=== PATIENT | male | born 1945 | race Caucasian/White ===

== ENCOUNTER 2018-02-12 12:47 | Emergency (ER) | payer MEDICARE ==
[2018-02-12 12:55] VITALS: BP 142/74; PULSE 66; RESP 18; TEMP 98
[2018-02-12] MEDS ORDERED: LIDOCAINE 1%-EPI 1:100,000 30 ML VIAL SQ STA (13:25)
--- NOTE | 2018-02-12 13:26 | ED ---
General Adult HPI - General Source: patient, RN notes reviewed Mode of arrival: ambulatory Limitations: no limitations <Don Elkins - Last Filed: 02/12/18 14:25> <Abelardo Olivia - Last Filed: 02/12/18 14:34> - General Chief complaint: Wound/Laceration Stated complaint: puncture wound left leg, on warfarin Time Seen by Provider: 02/12/18 13:12 - History of Present Illness Initial comments: 73-year-old male comes to the emergency department for a chief complaint of laceration 1 hour. Patient states a sharp part of a sun dial fell on his left leg and lacerated it. Patient is not sure when his last tetanus shot was. Patient is on Coumadin the bleeding has stopped. Patient denies any other symptoms of bleeding such as hematuria, melena, nosebleeds, abdominal pain. Patient denies falling or losing consciousness. Patient was able to stop the bleeding with bandages. Patient has no other complaints at this time including shortness of breath, chest pain, abdominal pain, nausea or vomiting, headache, or visual changes. (Don Elkins) - Related Data Home Medications Medication Instructions Recorded Confirmed Allopurinol [Zyloprim] 100 mg PO QAM 05/31/14 05/31/15 Gabapentin [Neurontin] 100 mg PO TID 05/31/14 05/31/15 Lovastatin [Mevacor] 20 mg PO HS 05/31/14 05/31/15 Warfarin [Coumadin] 5 mg PO MOTUWETHFRSA 05/31/14 05/31/15 amLODIPine BESYLATE/BENAZEPRIL 1 cap PO QAM 05/31/14 05/31/15 [Amlodipine-Benazepril 10-20 mg] glipiZIDE [Glucotrol XL] 2.5 mg PO QAM 05/31/14 05/31/15 sitaGLIPtin PHOS/metFORMIN HCL 1 tab PO BID 05/31/14 05/31/15 [Janumet 50-1,000 mg Tablet] Aspirin 81 mg PO DAILY 05/26/15 05/31/15 Chlorthalidone [Chlorthalidone] 25 mg PO QAM 05/26/15 05/31/15 Fish Oil/Dha/Epa [Fish Oil 1,200 1 cap PO DAILY 05/31/15 05/31/15 mg Fish Oil] Previous Rx's Medication Instructions Recorded HYDROcodone/APAP 7.5-325MG [[place] 1 each PO Q6HR PRN #60 tab 06/01/15 7.5] traMADol HCl [Ultram] 50 mg PO Q6H PRN #40 tab 06/01/15 Allergies Allergy/AdvReac Type Severity Reaction Status Date / Time codeine AdvReac Hallucinati Verified 02/12/18 12:54 ons Review of Systems ROS Other: All systems not noted in ROS Statement are negative. <Don Elkins - Last Filed: 02/12/18 14:25> ROS Other: All systems not noted in ROS Statement are negative. <Abelardo Olivia - Last Filed: 02/12/18 14:34> ROS Statement: Those systems with pertinent positive or pertinent negative responses have been documented in the HPI. Past Medical History Past Medical History: Diabetes Mellitus, Hyperlipidemia, Hypertension, Prostate Disorder Additional Past Medical History / Comment(s): GOUT. History of Any Multi-Drug Resistant Organisms: None Reported Past Surgical History: Joint Replacement, Orthopedic Surgery Additional Past Surgical History / Comment(s): TOTAL RIGHT HIP 2008. RIGHT ROTATOR CUFF. left knee surgery Past Anesthesia/Blood Transfusion Reactions: No Reported Reaction Past Psychological History: No Psychological Hx Reported Smoking Status: Never smoker Past Alcohol Use History: Rare Past Drug Use History: None Reported - Past Family History Father Family Medical History: AFIB, Cancer, Coronary Artery Disease (CAD) <Don Elkins P - Last Filed: 02/12/18 14:25> General Exam Limitations: no limitations General appearance: alert, in no apparent distress Head exam: Present: atraumatic, normocephalic, normal inspection Respiratory exam: Present: normal lung sounds bilaterally. Absent: respiratory distress, wheezes, rales, rhonchi, stridor Cardiovascular Exam: Present: regular rate, normal rhythm, normal heart sounds. Absent: systolic murmur, diastolic murmur, rubs, gallop, clicks Extremities exam: Present: full ROM (Full range of motion of the left lower leg including the left digits ankle knee and hip.), tenderness (Tenderness present over the laceration site. No tenderness elsewhere or over the tib-fib.), normal capillary refill (Refill less than 2 seconds and pedal pulse 2+ in the left lower extremity.), other (There is a 3 cm laceration to the lateral lower leg that has stopped bleeding at this time.). Absent: pedal edema, joint swelling, calf tenderness (No tenderness to the posterior calf. No increased swelling, redness, or warmth noted. Negative Homans sign.) <Don Elkins - Last Filed: 02/12/18 14:25> Course <Don Elkins - Last Filed: 02/12/18 14:25> <Abelardo Olivia - Last Filed: 02/12/18 14:34> Vital Signs 02/12/18 12:50 Temperature 98.0 F Pulse Rate 66 Respiratory 18 Rate Blood Pressure 142/74 O2 Sat by Pulse 98 Oximetry - Reevaluation(s) Reevaluation #1: 02/12/18 14:33 PA supervision: I did personally do a [id number] evaluation patient and did discuss the findings with him. Patient does have peripheral neuropathy normally he has no new numbness tingling or loss of function. The wound was repaired by the physician assistant business manager. The initial one was obtained when he was stuck in the leg by the arrow portion of a sundial that had fallen over in his yard. I do agree with the assessment and plan. I did review the charting. ( Abelardo Olivia) Procedures <Don Elkins - Last Filed: 02/12/18 14:25> <Abelardo Olivia - Last Filed: 02/12/18 14:34> - Procedures Initial comment: Body area: left lateral lower leg Laceration length: 3 cm Foreign bodies: no foreign bodies Tendon involvement: none Nerve involvement: none Vascular damage: no Anesthesia: local infiltration Local anesthetic: 7 mL 1% lidocaine with epi Preparation: Patient was prepped and draped in the usual sterile fashion. Irrigation solution: sterile water Irrigation method:sterile water jet lavage, iodine Skin closure:5-0 Ethilon using sterile technique Number of sutures: 10 Technique: interupted Dressing: antibiotic ointment/ gauze Patient tolerance: Patient tolerated the procedure well with no immediate complications. (Don Elkins) Medical Decision Making <Don Elkins - Last Filed: 02/12/18 14:25> <Abelardo Olivia - Last Filed: 02/12/18 14:34> - Medical Decision Making 73-year-old male presents to the emergency department for a chief complaint of laceration for one hour. Patient states the sharp part of his fell and hit his leg lacerating it. Patient was given a tetanus shot in the emergency department. Patient is on Coumadin. Bleeding has stopped. Patient has no other symptoms of bleeding at this time. On exam patient has full range of motion of the left lower extremity. Tenderness only to the laceration site in the left lower extremity. No calf tenderness. Negative Homans sign. Neurovascular intact. X-ray of the left tib-fib shows o fracture or dislocation , no radiographic foreign body. Patient's wound was irrigated with a liter of sterile water. It was cleaned extensively with iodine. No foreign bodies. All deep structures intact. 10 sutures were used to close the wound. Patient was educated on monitoring for signs of infection. There are no signs of infection right now such as cellulitic changes or spreading redness. Patient will return if he notices any of these. Otherwise he will return in 7-10 days to have sutures removed. He was educated to keep an eye on it since lower extremities don't always heal as quickly and to follow up with primary care in 1 -[address] Olivia also saw the patient. (Don Elkins) Disposition Is patient prescribed a controlled substance at d/c from ED?: No Time of Disposition: 14:30 <Don Elkins - Last Filed: 02/12/18 14:25> <Abelardo Olivia - Last Filed: 02/12/18 14:34> Clinical Impression: Laceration Disposition: HOME SELF-CARE Condition: Good Instructions: Care For Your Stitches (ED), Laceration (ED) Additional Instructions: Please monitor for any signs of infection such as spreading redness, streaking redness, drainage from the wound, or fever. Return if these occur or any other worsening symptoms. Return in 7-10 days to have sutures removed. Follow up with primary care in 1-2 days. Referrals: Enoch Resendiz MD [Primary Care Provider] - 1-2 days
--- NOTE | 2018-02-12 13:56 | XR ---
Left leg 2 views of the left leg submitted on 4 images HISTORY: Laceration There is soft tissue swelling. No radiopaque foreign body. Postop changes noted to the left knee. Bertram ency is present in the soft tissues. There are vascular calcifications present. Alignment and bone mi neralization within normal limits. IMPRESSION: No fracture or dislocation, no radiographic foreign body. Soft tissue swelling, correlate for cellulitis, edema.
[2018-02-12] MEDS ORDERED: DIPH,PERTUS(ACELL)TETVAC-LF 0.5 ML VIAL IM ONE (14:27)
== END 2018-02-12 14:55 | disposition home or self-care (01) ==
LOC: EC 12:47
DX: S81.812A Laceration without foreign body, left lower leg, initial encounter (principal); E11.9 Type 2 diabetes mellitus without complications; E78.5 Hyperlipidemia, unspecified; I10 Essential (primary) hypertension; G62.9 Polyneuropathy, unspecified; M10.9 Gout, unspecified; Z23 Encounter for immunization; Z96.641 Presence of right artificial hip joint; Z79.01 Long term (current) use of anticoagulants; Z79.82 Long term (current) use of aspirin; Z79.899 Other long term (current) drug therapy; Z88.5 Allergy status to narcotic agent; W21.89XA Striking against or struck by other sports equipment, initial encounter; Y92.89 Other specified places as the place of occurrence of the external cause; Y93.89 Activity, other specified
CPT/HCPCS: 12002; 90471; 90715; 99283

== ENCOUNTER → 2020-10-20 | Outpatient (CLI) | payer MEDICARE ==
--- NOTE | 2020-10-20 14:26 | ECHOF ---
Referral Reason:I48.0 a fib MEASUREMENTS -------- HEIGHT: 180.3 cm WEIGHT: 119.3 kg BP: RVIDd: 3.4 cm (< 3.3) IVSd: 1.2 cm (0.6 - 1.1) LVIDd: 5.0 cm (3.9 - 5.3) LVPWd: 1.3 cm (0.6 - 1.1) IVSs: 1.8 cm LVIDs: 3.6 cm LVPWs: 1.3 cm LAESV Index (A-L): 38.81 ml/m Ao Diam: 2.7 cm (2.0 - 3.7) AV Cusp: 2.0 cm (1.5 - 2.6) LA Diam: 4.8 cm (2.7 - 3.8) MV EXCURSION: 16.790 mm (> 18.000) MV EF SLOPE: 52 mm/s (70 - 150) EPSS: 1.8 cm RAP: 5.00 mmHg RVSP: 44.18 mmHg FINDINGS -------- Atrial fibrillation. This was a technically difficult study with suboptimal views. The left ventricular size is normal. There is mild concentric left ventricular hypertrophy. Overa ll left ventricular systolic function is moderately impaired with, an EF between 35 - 40 %. Left ve ntricular fillimg pressure cannot be estimated due to Atrial fibrillation. The right ventricle is mildly enlarged. LA is moderately dilated 34-39 ml/m2 The right atrium is mildly enlarged. 5.0mg of Lumason was utilized for enhancement of images Aortic valve is trileaflet and is mildly thickened. The mitral valve is normal. The mitral valve leaflets are mildly thickened. Mild mitral regurgita tion is present. The tricuspid valve appears structurally normal. Mild tricuspid regurgitation present. There is m ild pulmonary hypertension. The right ventricular systolic pressure, as measured by Doppler, is 44. 18mmHg. There is no pulmonic regurgitation present. The aortic root size is normal. IVC Not well visulized. There is no pericardial effusion. CONCLUSIONS -------- 1. Atrial fibrillation. 2. The left ventricular size is normal. 3. There is mild concentric left ventricular hypertrophy. 4. Overall left ventricular systolic function is moderately impaired with, an EF between 35 - 40 %. 5. Left ventricular fillimg pressure cannot be estimated due to Atrial fibrillation. 6. The right ventricle is mildly enlarged. 7. LA is moderately dilated 34-39 ml/m2 8. The right atrium is mildly enlarged. 9. Aortic valve is trileaflet and is mildly thickened. 10. The mitral valve leaflets are mildly thickened. 11. Mild mitral regurgitation is present. 12. Mild tricuspid regurgitation present. 13. There is mild pulmonary hypertension. 14. The right ventricular systolic pressure, as measured by Doppler, is 44.18mmHg. 15. There is no pericardial effusion. VENEER LAYER: Darlene Liriano RDCS
--- NOTE | 2020-10-20 16:20 | US ---
EXAMINATION TYPE: US kidneys/renal and bladder DATE OF EXAM: 10/20/2020 COMPARISON: NONE CLINICAL HISTORY: N18.31 CHronic kidney disease. EXAM MEASUREMENTS: Right Kidney: 11.1 x 5.4 x 4.9 cm Left Kidney: 10.5 x 6.2 x 4.9 cm Large body habitus, technically difficult somewhat limited study. Right Kidney: No hydronephrosis or masses seen Left Kidney: No hydronephrosis or masses seen Bladder: wnl Bilateral Jets seen: Yes There is no evidence for hydronephrosis at this point in time. No nephrolithiasis is seen. Cortical medullary differentiation is maintained No masses are identified. The urinary bladder is anechoic. Bilateral ureteral jets are seen. Coarse echotexture within the liver may be indicative of an underlying hepatic steatosis, suspect und erlying hepatomegaly. IMPRESSION: Exam is somewhat limited. Renal sizes as described.
--- NOTE | 2020-10-20 16:22 | US ---
EXAMINATION TYPE: US carotid duplex BILAT DATE OF EXAM: 10/20/2020 COMPARISON: NONE CLINICAL HISTORY: I65.23 Carotid stenosis bilateral. EXAM MEASUREMENTS: RIGHT: Peak Systolic Velocity (PSV) cm/sec ----- Right CCA: 57.8 ----- Right ICA: 91.6 ----- Right ECA: 224.9 ICA/CCA ratio: 1.6 RIGHT: End Diastole cm/sec ----- Right CCA: 15.1 ----- Right ICA: 21.2 ----- Right ECA: 22.9 LEFT: Peak Systolic Velocity (PSV) cm/sec ----- Left CCA: 96.5 ----- Left ICA: 82.8 ----- Left ECA: 88.3 ICA/CCA ratio: 0.9 LEFT: End Diastole cm/sec ----- Left CCA: 21.5 ----- Left ICA: 27.8 ----- Left ECA: 13.1 VERTEBRALS (direction of flow): Right Vertebral: Antegrade Left Vertebral: Antegrade Rhythm: Normal Grayscale, color Doppler, spectral Doppler imaging performed of the carotid arteries. Waveform analys is does not show significant stenosis of the internal carotid arteries Moderate atherosclerotic babcock es without significant velocity elevations seen in bilateral ICA's. Right ECA shows elevation. IMPRESSION: No hemodynamic significant stenosis of the proximal internal carotid arteries by Doppler criteria, an indirect measurement of carotid stenosis Criteria for Assigning % of Stenosis / Diameter reduction (Estimation based on the indirect measurements of the internal carotid artery velocities (ICA PSV). 1. Normal (no stenosis)=ICA PSV < 125 cm/s: ratio < 2.0: ICA EDV<40 cm/s. 2. Less than 50% stenosis=ICA PSV < 125 cm/s: ratio < 2.0: ICA EDV<40 cm/s. 3. 50 to 69% stenosis=ICA PSV of 125 to 230 cm/s: ration 2.0 ? 4.0: ICA EDV 40-100 cm/s. 4. Greater than 70% stenosis to near occlusion= ICA PSV > 230 cm/s: ratio > 4.0: ICA EDV > 100 cm/s. 5. Near occlusion= ICA PSV velocities may be low or undetectable: variable ratio and ICA EDV. 6. Total occlusion=unable to detect flow.
== END | disposition home or self-care (01) ==
LOC: RADECHMAIN 12:02
PROVIDERS: ATTEND Internal Medicine
DX: I08.1 Rheumatic disorders of both mitral and tricuspid valves (principal); I27.20 Pulmonary hypertension, unspecified; I48.91 Unspecified atrial fibrillation; I50.1 Left ventricular failure, unspecified; N18.31 Chronic kidney disease, stage 3a; I65.23 Occlusion and stenosis of bilateral carotid arteries
CPT/HCPCS: 76770; 93880; C8929; Q9950; 93306

== ENCOUNTER 2021-02-21 05:53 | Day surgery (SDC) | payer MEDICARE ==
[2021-02-20 08:58] VITALS: BMI 36.2
[~2021-02-21 05:53] MED LIST: ALPRAZolam 0.25 MG TAB PO PRN; ALPRAZolam 0.5 MG TAB PO PRN; ASPIRIN 325 MG TAB PO STA; ATORVASTATIN 80 MG TAB PO STA; NITROGLYCERIN SL TABS 0.4 MG TAB SUBLINGUAL PRN; SODIUM CHLORIDE 0.9% 1,000 ML in EMPTY BAG 1 BAG IV ONE
[2021-02-21 06:21] LABS: Glucose,Whole Blood 259 mg/dL (75-99)
[2021-02-21 06:22] VITALS: TEMP 98.8
[2021-02-21] MEDS ORDERED: INSULIN ASPART (NovoLOG) 100 UNIT/ML VIAL SQ ONE (06:27)
[2021-02-21 06:48] LABS: Basophils % (A) 0 %; Eosinophils # (A) 0.2 k/uL (0-0.7); Eosinophils % (A) 2 %; HGB 9.2 gm/dL (13.0-17.5); Hypochromasia Marked; Lymphocytes # (A) 1.5 k/uL (1.0-4.8); Lymphocytes % (A) 16 %; MCHC 32.9 g/dL (31.0-37.0); MCV 88.1 fL (80.0-100.0); Mean Platelet Volume 8.5; Monocytes # (A) 0.6 k/uL (0-1.0); Monocytes % (A) 6 %; Neutrophils # (A) 6.9 k/uL (1.3-7.7); Neutrophils % (A) 74 %; Platelet Count 324 k/uL (150-450); Poikilocytosis Moderate; RBC 3.18 m/uL (4.30-5.90); RDW 14.8 % (11.5-15.5); WBC 9.4 k/uL (3.8-10.6)
[2021-02-21 06:57] LABS: Calcium 9.2 mg/dL (8.4-10.2); Potassium 3.9 mmol/L (3.5-5.1)
[2021-02-21] MEDS ORDERED: HEPARIN SODIUM,PORCINE 2,500 UNIT in SODIUM CHLORIDE 0.9% 250 ML IRRIGATION PRN (07:00)
[2021-02-21] MEDS ORDERED: HEPARIN SODIUM,PORCINE 10,000 UNIT in SODIUM CHLORIDE 0.9% 1,000 ML IRRIGATION PRN (07:00)
[2021-02-21] MEDS ORDERED: VERAPAMIL 2.5 MG/ML 2 ML AMP ONE (07:23)
[2021-02-21] MEDS ORDERED: fentaNYL (PF) 50 MCG/ML 2 ML AMP ONE (07:23)
[2021-02-21] MEDS ORDERED: LIDOCAINE 1% INJ 10MG/ML (20 ML MDV) ONE (07:23)
[2021-02-21] MEDS ORDERED: HEPARIN SODIUM 1,000 UN/ML (10ML VL) ONE (07:23)
[2021-02-21] MEDS ORDERED: fentaNYL (PF) 50 MCG/ML 2 ML AMP IV ONE (07:42)
[2021-02-21] MEDS ORDERED: LIDOCAINE 1% INJ 10MG/ML (20 ML MDV) SQ ONE (07:43)
[2021-02-21] MEDS: VERAPAMIL SYRINGE (5 MG/10 ML) INTRAARTER ONE ×2 (07:44→07:58)
[2021-02-21] MEDS ORDERED: METOPROLOL TARTRATE 5 MG/5 ML VIAL IVP ONE ×2 (07:45→07:47)
[2021-02-21] MEDS ORDERED: HEPARIN SODIUM 1,000 UN/ML (10ML VL) IV ONE (07:58)
[2021-02-21] MEDS ORDERED: IOPAMIDOL-370 125ML BTL INJ ONE (08:03)
[2021-02-21] MEDS ORDERED: SODIUM CHLORIDE 0.9% 1,000 ML IV SCH (08:15)
[2021-02-21] MEDS ORDERED: RX INFO: IV CONTRAST WAS GIVEN 1 EACH MISC MISCELLANE PRN (08:15)
[2021-02-21 08:22] VITALS: RESP 16
[2021-02-21] MEDS ORDERED: NON FORMULARY DRUG (Semaglutide [Rybelsus] 7 MG Tablet) PO SCH (09:00)
[2021-02-21] MEDS ORDERED: TURMERIC CURCUMIN PO SCH (09:00)
[2021-02-21] MEDS ORDERED: NON FORMULARY DRUG (Cholecalciferol (Vitamin D3) [Vitamin D3 (5000 Iu)] 125 MCG Capsule) PO SCH (09:00)
[2021-02-21] MEDS ORDERED: GABAPENTIN 100 MG CAP PO SCH (09:00)
[2021-02-21] MEDS ORDERED: GLIPIZIDE 2.5 MG PO SCH (09:00)
[2021-02-21] MEDS ORDERED: lisinopriL 5 MG TAB PO SCH (09:00)
[2021-02-21] MEDS ORDERED: NON FORMULARY DRUG (Vitamin B Complex [Vitamin B Complex] 1 EACH Capsule) PO SCH (09:00)
[2021-02-21] MEDS ORDERED: ASCORBIC ACID 500 MG TAB PO SCH (09:00)
[2021-02-21] MEDS ORDERED: NON FORMULARY DRUG (Zinc [Zinc] 50 MG Tablet) PO SCH (09:00)
[2021-02-21] MEDS ORDERED: METOPROLOL TARTRATE 25 MG TAB PO SCH (09:00)
[2021-02-21] MEDS ORDERED: SITAGLIPTIN 25 MG PO SCH (09:00)
[2021-02-21] MEDS ORDERED: allopurinoL 100 MG TAB PO SCH (09:00)
--- NOTE | 2021-02-21 09:24 | CC ---
CARDIAC CATHETERIZATION REPORT Mr. Monsalve is a 76-year-old male with known history of hypertension, hyperlipidemia, diabetes mellitus, history of atrial fibrillation, and a history of cardiomyopathy who has been complaining of progressive symptoms of dyspnea. He underwent myocardial perfusion imaging that revealed a partially reversible inferoapical wall defect that could represent a combination of ischemic and nonischemic cardiomyopathy. In view of that, recommendation was made regarding cardiac catheterization. The procedure as well as the risks and complications were discussed with the patient who is in full understanding and agreement. PROCEDURE: Patient was brought to the clinical laboratory medical director in a fasting semi-sedated state after receiving fentanyl and Benadryl and achieving moderate conscious sedated state. Using Xylocaine anesthesia and Seldinger technique, a 6-Congolese sheath was introduced in the right radial artery. Selective right and left coronary angiography performed with 6-Congolese, 5 bend right Jonh catheter and 5-Congolese 3.5 bend left Jonh catheter. Multiple views of the coronary arteries including hemiaxial views obtained. Following that a 5- Cong[place]ese tight pigtail catheter was introduced into the left ventricle and left ventricular end-diastolic pressure was calculated. Following that, catheter and sheath were removed. Hemostasis was obtained with deployment of TR band. There was no immediate complication. Patient is returned to his room in stable condition. Of note, the patient received 5000 units of intravenous heparin as well as intra-arterial verapamil. FINDINGS: LEFT MAIN: This is a very short size vessel, almost nonexisting, bifurcating immediately to the left circumflex and left anterior descending artery. LEFT ANTERIOR DESCENDING ARTERY: This is a large-sized vessel reaching to the apex with a wraparound to the apex segment giving rise to 3 diagonal branches. The left anterior descending artery is mildly calcified proximally. The first diagonal branch has a 30 to 40% plaque at the ostium. The rest of the vessel has no high-grade stenosis. LEFT CIRCUMFLEX: This is a codominant vessel, bifurcating distally to a small PDA and PLV, giving rise to 3 obtuse marginal branches, the first one is the largest in caliber. The left circumflex as well as branches have no evidence of obstructive disease. RIGHT CORONARY ARTERY: This is a moderately-sized codominant vessel, giving rise to a right PDA. The right coronary artery and its branches have no evidence of obstructive coronary artery disease. LEFT VENTRICULOGRAM: Left ventriculogram was not performed. HEMODYNAMICS: There was no gradient across the aortic valve. The left ventricular end-diastolic pressure 12-16 mmHg. CONCLUSION: 1. Mild calcification in the left anterior descending. 2. Normal ventricular end-diastolic pressure. 3. Codominant system. RECOMMENDATION: In view of finding anatomy, I recommend to continue medical therapy with aggressive coronary risk modifications that has been initiated. Those findings and recommendation were discussed with the patient and his family and they are in full understanding and agreement. Duration of sedation 21 minute. MMODL / IJN: [id number] /
--- NOTE | 2021-02-21 09:24 | LTR ---
02/21/2021 RE: Abelardo Monsalve Dear Dr. Larsen: I had the pleasure of performing coronary cardiac catheterization on Mr. Monsalve at [facility] on February 21 and a full copy of procedure note will be forwarded to you. In brief, he was found to have no evidence of high-grade stenosis and based on those findings I recommend to maximize his medical therapy in view of his cardiomyopathy and depending on his progress, further recommendation will be made. Thank you again for allowing me to participate in his care. Please feel free to call for any questions. Sincerely yours, MD WILLY ShankarL / EDENN: [id number] /
[2021-02-21 13:12] VITALS: BP 123/72; PULSE 76
[2021-02-21] MEDS ORDERED: ATORVASTATIN 20 MG TAB PO SCH (21:00)
== END 2021-02-21 11:46 | disposition home or self-care (01) ==
LOC: CATHCVL 05:53
PROVIDERS: ATTEND Internal Medicine Interventional Cardiology
DX: I25.10 Atherosclerotic heart disease of native coronary artery without angina pectoris (principal); I25.84 Coronary atherosclerosis due to calcified coronary lesion; I42.8 Other cardiomyopathies; I10 Essential (primary) hypertension; E78.2 Mixed hyperlipidemia; E11.9 Type 2 diabetes mellitus without complications; Z20.822 Contact with and (suspected) exposure to COVID-19; Z96.659 Presence of unspecified artificial knee joint; Z96.649 Presence of unspecified artificial hip joint; Z98.890 Other specified postprocedural states; Z98.49 Cataract extraction status, unspecified eye; Z96.1 Presence of intraocular lens; Z87.891 Personal history of nicotine dependence; I48.21 Permanent atrial fibrillation; Z79.01 Long term (current) use of anticoagulants; Z79.84 Long term (current) use of oral hypoglycemic drugs; Z79.899 Other long term (current) drug therapy; Z88.5 Allergy status to narcotic agent
CPT/HCPCS: 93458; 80048; 85025; 87635; C1894; C1769 ×2; J2001; J3010; J1644; Q9967

== ENCOUNTER → 2021-04-11 | Outpatient (CLI) | payer MEDICARE ==
--- NOTE | 2021-04-11 11:08 | XR ---
EXAM TYPE: LUMBAR SPINE X RAY SERIES COMPARISON: NONE HISTORY: Pain TECHNIQUE: 3 views are submitted. FINDINGS: Alignment is anatomic. The pedicles are intact. The transverse processes are intact. There is mult ilevel hypertrophic and degenerative changes. There is multilevel facet arthropathy. Bridging anterio r osteophytes are seen at multiple levels. Suspect foraminal encroachment at multiple levels and part icularly at L4-5 and L5-S1. Bilateral SI joint arthropathy. IMPRESSION: 1. Multilevel moderate to severe degenerative disc disease most marked at L4-L5 with hypertrophic art hropathy. Suspect bilateral foraminal encroachment recommend follow-up MRI.
== END | disposition home or self-care (01) ==
LOC: RADXRMAIN 09:45
PROVIDERS: ATTEND Internal Medicine
DX: M51.36 Other intervertebral disc degeneration, lumbar region (principal)
CPT/HCPCS: 72100

== ENCOUNTER → 2021-04-30 | Outpatient (CLI) | payer MEDICARE ==
[2021-04-30 11:48] LABS: Anisocytosis Slight; HCT 33.5 % (39.0-53.0); HGB 10.3 gm/dL (13.0-17.5); Hypochromasia Marked; MCH 26.9 pg (25.0-35.0); MCHC 30.6 g/dL (31.0-37.0); MCV 87.9 fL (80.0-100.0); Mean Platelet Volume 9.1; Platelet Count 252 k/uL (150-450); RBC 3.82 m/uL (4.30-5.90); RDW 16.5 % (11.5-15.5); WBC 7.8 k/uL (3.8-10.6)
[2021-04-30 12:07] LABS: Potassium 3.5 mmol/L (3.5-5.1)
== END | disposition home or self-care (01) ==
LOC: LABPAT 11:11
PROVIDERS: ATTEND Internal Medicine Clinical Cardiac Electrophysiology
DX: Z01.812 Encounter for preprocedural laboratory examination (principal); I48.11 Longstanding persistent atrial fibrillation
CPT/HCPCS: 36415; 80051; 82565; 84520; 85027

== ENCOUNTER → 2021-05-11 | Outpatient (CLI) | payer MEDICARE ==
--- NOTE | 2021-05-13 15:53 | MR ---
EXAMINATION TYPE: MR lumbar spine wo con DATE OF EXAM: 05/11/2021 COMPARISON: Plain film 04/11/2021 HISTORY: TECHNIQUE: Multiplanar, multisequence images of the lumbar spine were acquired. L1-L2: Posterior broad-based disc bulge causes minimal anterior mass effect on the thecal sac. There is some facet arthropathy change. No significant foraminal encroachment. L2-L3: Posterior broad-based disc bulge causes minimal anterior mass effect on the thecal sac. No sig nificant spinal stenosis or foraminal encroachment. L3-L4: Facet arthropathy is present with hypertrophy ligamentum flavum causing some posterior lateral mass effect on the thecal sac. Posterior broad-based disc bulge causes anterior mass effect on the t hecal sac but no significant spinal stenosis or foraminal encroachment. L4-L5: Posterior extension endplate disc complex results in moderate spinal stenosis, circumferential extension endplate disc complex encroaches minimally on the inferior foramina. Facet arthropathy wit h hypertrophy ligamentum flavum causes posterior lateral mass effect on the thecal sac. L5-S1: Posterior extension endplate disc complex causes effacement of anterior thecal sac. No signifi cant spinal stenosis. Circumferential extension endplate disc complex results in foraminal encroachme nt. Facet arthropathy changes are present. Lumbar segments are intact. No paraspinal masses are identified. Conus medullaris has a normal appe arance. There is loss of disc height and signal at intervertebral levels, multilevel spondylosis with endplate discogenic marrow signal change. Superior endplate of L2 shows a small is no. At T11-12 the re is posterior extension endplate disc complex causing mass effect on the conus medullaris. There is some associated facet arthropathy change resulting in spinal stenosis. IMPRESSION: There is mass effect on the conus medullaris due to spinal stenosis, hypertrophic changes of the face ts and degenerative disc change. Additional degenerative disc disease, facet arthropathy and foramina l encroachment as described.
== END | disposition home or self-care (01) ==
LOC: RADMRIMAIN 06:35
PROVIDERS: ATTEND Internal Medicine
DX: M48.061 Spinal stenosis, lumbar region without neurogenic claudication (principal); M51.06 Intervertebral disc disorders with myelopathy, lumbar region; M51.36 Other intervertebral disc degeneration, lumbar region; M46.96 Unspecified inflammatory spondylopathy, lumbar region
CPT/HCPCS: 72148

== ENCOUNTER 2021-07-30 07:35 | Day surgery (SDC) | payer MEDICARE ==
[2021-07-27 09:49] VITALS: BMI 33.9
[~2021-07-30 07:35] MED LIST changes: -ALPRAZolam 0.25 MG TAB PO PRN; -ALPRAZolam 0.5 MG TAB PO PRN; -ASPIRIN 325 MG TAB PO STA; -ATORVASTATIN 80 MG TAB PO STA; +LACTATED RINGERS 1,000 ML IV SCH; +MIDAZOLAM 2 MG/2 ML VIAL IV PRN; -NITROGLYCERIN SL TABS 0.4 MG TAB SUBLINGUAL PRN; +SODIUM CHLORIDE 0.9% 1,000 ML IV SCH; -SODIUM CHLORIDE 0.9% 1,000 ML in EMPTY BAG 1 BAG IV ONE; +fentaNYL (PF) 50 MCG/ML 2 ML AMP IV PRN
[2021-07-30] MEDS ORDERED: SODIUM CHLORIDE 0.9% 1,000 ML IV ONE (07:51)
[2021-07-30] MEDS ORDERED: INSULIN ASPART (NovoLOG) 100 UNIT/ML VIAL SQ ONE ×2 (08:09→08:23)
[2021-07-30 08:10] LABS: Glucose,Whole Blood 211 mg/dL (75-99)
[2021-07-30] MEDS ORDERED: fentaNYL (PF) 50 MCG/ML 2 ML AMP ONE (09:52)
[2021-07-30] MEDS ORDERED: DEXAMETHASONE SOD PHOSPHATE 10 MG/ML 1 ML VIAL ONE (09:52)
[2021-07-30] MEDS ORDERED: ETOMIDATE 2 MG/ML 10 ML VIAL ONE (09:52)
[2021-07-30] MEDS ORDERED: PHENYLEPHRINE-0.9% NACL SYG 1,000 MCG/10 ML SYRINGE ONE (09:52)
[2021-07-30] MEDS ORDERED: ONDANSETRON 4 MG/2 ML VIAL ONE (09:52)
[2021-07-30] MEDS ORDERED: HEPARIN SODIUM,PORCINE 10,000 UNIT/ML 1 ML VIAL ONE (09:52)
[2021-07-30] MEDS ORDERED: LIDOCAINE 1% INJ 10MG/ML (20 ML MDV) ONE ×2 (09:52→10:11)
[2021-07-30] MEDS ORDERED: SUCCINYLCHOLINE CHLORIDE VIAL 200 MG/10 ML VIAL IV ONE (09:52)
[2021-07-30] MEDS ORDERED: MIDAZOLAM 2 MG/2 ML VIAL ONE (09:52)
--- NOTE | 2021-07-30 09:55 | P.HPCAR ---
History of Present Illness This is Dr. Kumar dictating an H/P on this patient The patient was interviewed and examined IMPRESSION / ASSESSMENT: Persistent long-standing atrial fibrillation Reduce LV systolic function of 35%, nonischemic cardio myopathy Main complaint is tiredness shortness of breath on exertion with occasional dizziness Calcific atherosclerosis but no high-grade stenosis no ischemia on stress testing Chronic kidney disease PLAN: A. fib ablation with pulmonary vein isolation and linear ablation of the septum Continue oral amiodarone Continue Xarelto Long-acting metformin succinate Follow Dr. Larsen and Dr. Castañeda HPI Patient complains of tiredness and fatigue but he denies any orthopnea PND no recent CHF exacerbation No syncope No fever chills cough ROS: No fever chills or rigors, no cough, phlegm or expectoration, no nausea, vomiting or diarrhea, no hematuria, dysuria, no musculoskeletal complaints, no strokes or seizures, no skin lesions. EXAMINATION: Afebrile 97.9F, normal respirations, blood pressure 166/75 mmHg pulse rate in the 80s irregular Breath sounds are clear no rhonchi no crackles No JVD no hepatojugular reflux No murmurs over the precordium No lower extremity edema Normal groin bilaterally REVIEW OF LABS, ECG & MEDICAL DATA normal potassium, glucose 211 Sodium 143, BUN 17, creatinine 1.3 Hemoglobin A1c 7.3% Normal liver function TSH normal at 2.2 Triglycerides 181, total cholesterol 100 and LDL 31, HDL 33 Physical Exam Vitals: Vital Signs Temp Pulse Resp BP Pulse Ox 07/30/21 08:24 97.9 F 87 16 166/75 95 Intake and Output 07/29/21 07/30/21 07/30/21 22:59 06:59 14:59 Intake Total 100 Balance 100 Intake: IV 100 Other: Weight 109 kg Past Medical History Past Medical History: Atrial Fibrillation, Diabetes Mellitus, Hyperlipidemia, Hypertension, Osteoarthritis (OA), Prostate Disorder Additional Past Medical History / Comment(s): See Dr Kumar's H&P,GOUT, enlarged prostate,spinal stenosis History of Any Multi-Drug Resistant Organisms: None Reported Past Surgical History: Joint Replacement, Orthopedic Surgery Additional Past Surgical History / Comment(s): TOTAL RIGHT HIP 2007. RIGHT ROTATOR CUFF. left knee surgery, left knee replaced Past Anesthesia/Blood Transfusion Reactions: No Reported Reaction Smoking Status: Never smoker - Past Family History Father Family Medical History: AFIB, Cancer, Coronary Artery Disease (CAD) Physical Examination Vital Signs Temp Pulse Resp BP Pulse Ox 07/30/21 08:24 97.9 F 87 16 166/75 95 Intake and Output 07/29/21 07/30/21 07/30/21 22:59 06:59 14:59 Intake Total 100 Balance 100 Intake: IV 100 Other: Weight 109 kg Results 07/30/21 07:50 Comprehensive Metabolic Panel 07/30/21 Range/Units 07:50 Potassium 3.5 (3.5-5.1) mmol/L Current Medications Generic Name Dose Route Start Last Admin Trade Name Freq PRN Reason Stop Dose Admin Fentanyl Citrate 50 mcg 07/30/21 07:00 Fentanyl (Pf) 50 Mcg/Ml 2 Ml Amp IV 07/30/21 23:00 Q3M PRN Phase I - Pain Control Sodium Chloride 1,000 mls @ 20 mls/hr 07/30/21 06:05 Saline 0.9% IV 08/29/21 06:06 .Q24H GENE Lactated Ringer's 1,000 mls @ 20 mls/hr 07/30/21 06:05 Lactated Ringers IV 08/29/21 06:06 .Q24H GENE Midazolam HCl 2 mg 07/30/21 06:05 Midazolam 2 Mg/2 Ml Vial IV 07/30/21 23:00 ONCE PRN Pre-Op Anxiety Intake and Output 07/29/21 07/30/21 07/30/21 22:59 06:59 14:59 Intake Total 100 Balance 100 Intake: IV 100 Other: Weight 109 kg Patient Weight 07/31/21 06:59 Weight 109 kg 07/30/21 07:50
[2021-07-30 09:59] LABS: Glucose,Whole Blood 158 mg/dL (75-99)
[2021-07-30] MEDS ORDERED: LIDOCAINE 1% INJ 10MG/ML (20 ML MDV) SQ ONE (10:35)
[2021-07-30] MEDS ORDERED: HEPARIN SODIUM (1,000 UNIT/ML) 1,000 UNIT in SODIUM CHLORIDE 0.9% 1,000 ML IRRIGATION ONE (10:42)
[2021-07-30] MEDS ORDERED: HEPARIN SOD,PORK IN 0.45% NACL 25,000 UNIT in 0.45% NACL 1 250ML.BAG IV ONE (10:42)
[2021-07-30] MEDS ORDERED: ACETAMINOPHEN TAB 325 MG TAB PO PRN (13:35)
[2021-07-30] MEDS ORDERED: ACETAMINOPHEN IV (For NPO) 1,000 MG in EMPTY BAG 1 BAG IVPB ONE (13:35)
[2021-07-30 13:40] VITALS: TEMP 97.6
[2021-07-30 13:47] LABS: Glucose,Whole Blood 175 mg/dL (75-99)
[2021-07-30 13:48] VITALS: RESP 16
--- NOTE | 2021-07-30 13:48 | P.PRLE ---
RE: Abelardo Monsalve Dear Jorge L Abelardo underwent an attempt at A. fib ablation for long-standing persistent atrial fibrillation Transseptal catheterization was performed successfully 3 times and transseptal puncture was performed at 3 different sites in the fossa ovalis. First the lower fossa ovalis, then subsequently the upper fossa ovalis and then the mid fossa ovalis was successfully accessed and punctured 2 different atrial sheaths were placed in the LA It was difficult to place the sheath across the fossa ovalis but we were able to do so on all 3 transseptal punctures Despite that we were not able to maneuver the sheath in the left atrium from all 3 transseptal sites Both cryoablation and even RF ablation with a regular sheath was attempted but it was virtually impossible to maneuver the sheath around the pulmonary veins Therefore since we could not achieve stable cath to position, no ablation was performed It is extremely unusual that despite 3 successful transseptal accesses, the sheath could not be maneuvered in the left atrium My best impression is that the 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
--- NOTE | 2021-07-30 13:51 | P.EPPROC ---
- EP Procedure Note Electrophysiology Procedure Note: Long procedure An attempt was made at in A. fib ablation Transseptal catheterization was somewhat difficult particularly possibly the sheaths across the fossa ovalis Subsequently in the sheath was placed in the left atrium maneuvering the sheath from upper to lower veins as well as from left to right was virtually impossible Stable position of the cryo-balloon as well as the RF ablation catheter could not be achieved 3 different transseptal punctures were performed, first in the lower fossa ovalis, next in the upper fossa ovalis and then in the mid fossa ovalis On all 3 occasions were the same issue with pus in the sheath through the fossa ovalis and subsequently extreme difficulty in maneuvering the sheath in the left atrium for stable ablation catheter placement RA pressure 18/9/14 LV pressure 32/8/18 Electrical cardioversion was performed at the end of the procedure A 200 J biphasic shock converted the patient to sinus rhythm with a single shock Plan Continue xarelto Continue current of the medications Continue oral amiodarone 200 mg by mouth daily
--- NOTE | 2021-07-30 13:54 | CE ---
CARDIAC ELECTROPHYSIOLOGY REPORT This is a 76-year-old male patient with long-standing persistent atrial fibrillation with cardiomyopathy who came in for an atrial fibrillation ablation. Patient was brought to the EP lab in a fasting state. Written informed consent was obtained prior to the procedure. The right and left groins were prepped and draped as per protocol. Venous sheaths were placed in the right and left femoral veins. Via these, diagnostic catheters were placed, intracardiac echo catheter, and transseptal catheterization was performed. The coronary sinus catheter was placed in the coronary sinus. Coronary sinus access was somewhat difficult, but we were able to place the coronary sinus catheter deep into the vein for CS mapping. Intracardiac echo revealed a mildly reduced LV systolic function, a dilated left atrium with a very large left atrial appendage. No evidence for intracardiac mass or thrombus and no pericardial effusion. Transseptal catheterization was performed. Following that, a regular sheath was placed and thereafter the cryosheath was placed in the left atrium. While transseptal catheterization was reasonably expeditious, it was very difficult to pass the sheath through the septum, especially the cryosheath. Using the coronary sinus catheter for support in the fossa ovalis, the cryosheath was placed in the left atrium. The cryoballoon was placed in the left atrium. However, we were unable to move the cryosheath or deflect it into the left-sided veins and definitely could not rotate it 180 degrees into the right-sided veins. Therefore transseptal catheterization was once again attempted at a different site, and we had the exact same result. Following that, sheath was placed and an RF ablation catheter was placed to proceed with RF ablation. However, once again we had great difficulty with stability and maneuvering and rotating the sheath within the left atrium. It appeared that the interatrial septum was very stiff. Three separate different sites were punctured in the fossa ovalis (the upper fossa ovalis, the lower fossa ovalis and the mid fossa ovalis). However, on all three occasions we had the same issue; namely, the inability to maneuver the sheath and provide stable catheter position in and around the pulmonary veins. Multiple attempts were made at all three sites with RF support sheath as well as with the cryosheath, but we could not achieve stable maneuvering around the left atrium, around the pulmonary veins. Intracardiac echo revealed absence of any pericardial effusion at the end of the procedure. All sheaths were removed. Hemostasis was achieved in all access sites with a Vascade closure device. Then at the end, once hemostasis was achieved, electrical cardioversion was performed and the patient was converted to sinus rhythm with a 200-joule biphasic shock in the AP configuration. RESULT: 1. Diagnostic EP study revealed persistent atrial fibrillation. 2. Successful electrical cardioversion was performed. 3. Three successful transseptal catheterizations were performed, but it was very difficult to pass the sheath, especially the cryosheath, into the left atrium. Once the standard sheath for RF ablation and the cryosheath for cryoablation were placed in the left atrium, it was very difficult to maneuver the sheath around the left atrium to provide stable catheter position. In view of this, the procedure was abandoned and electrical cardioversion was performed successfully and the venous access sites were closed successfully. SUGGEST: Continue anticoagulation and consider biventricular pacing and AV node ablation. MMODL / IJN: [id number] /
[2021-07-30 18:18] VITALS: BP 129/61; PULSE 91
== END 2021-07-30 18:31 | disposition home or self-care (01) ==
LOC: CATHEP 07:35
PROVIDERS: ATTEND Internal Medicine Clinical Cardiac Electrophysiology
DX: I48.11 Longstanding persistent atrial fibrillation (principal); E11.22 Type 2 diabetes mellitus with diabetic chronic kidney disease; E78.5 Hyperlipidemia, unspecified; I12.9 Hypertensive chronic kidney disease with stage 1 through stage 4 chronic kidney disease, or unspecified chronic kidney disease; M19.90 Unspecified osteoarthritis, unspecified site; N18.9 Chronic kidney disease, unspecified; Z79.01 Long term (current) use of anticoagulants; Z82.49 Family history of ischemic heart disease and other diseases of the circulatory system; Z20.822 Contact with and (suspected) exposure to COVID-19
CPT/HCPCS: 92960; 93620; 84132; 87635; C1894 ×2; C1769 ×4; C1760; C1730 ×2; C1759; C1893; C1733; C1766; C1732; J2250; J0330; J1644 ×3; J1100; J2405; J2001; J3010; J2370

== ENCOUNTER → 2022-02-26 | Outpatient (CLI) | payer MEDICARE ==
[2022-02-26 14:38] LABS: African American GFR (CKD) 67.7 (60.0-200.0); Albumin/Globulin Ratio 1.18 (1.60-3.17); Anion Gap 8.5 mmol/L (10.00-18.00); Blood Urea Nitrogen 19.2 mg/dL (9.0-27.0); Calcium 8.7 mg/dL (8.7-10.3); Carbon Dioxide 29.5 mmol/L (20.0-27.5); Globulin 3.4 g/dL (1.6-3.3); Non-African American GFR(CKD) 58.4 (60.0-200.0); Potassium 3.5 mmol/L (3.5-5.5); Total Bilirubin 0.7 mg/dL (0.30-1.20); Total Protein 7.4 g/dL (6.2-8.2)
== END | disposition home or self-care (01) ==
LOC: LABWHC1 08:07
PROVIDERS: ATTEND Internal Medicine Interventional Cardiology
DX: I10 Essential (primary) hypertension (principal); I42.8 Other cardiomyopathies
CPT/HCPCS: 36415; 80053; 83880

== ENCOUNTER → 2022-04-20 | Outpatient (CLI) | payer MEDICARE ==
--- NOTE | 2022-04-20 14:31 | MR ---
EXAMINATION TYPE: MR Prostate wo/w con DATE OF EXAM: 04/20/2022 10:09 AM COMPARISON: None. CLINICAL INDICATION:Male, 77 years old with history of ELEVATED PSA; TECHNIQUE: Multi-planar, multi-sequence imaging of the pelvis is performed prior to and following the uncomplicated administration of bolus intravenous gadolinium. CONTRAST: 11 Gadavist Interpretive Criteria: PI-RADS v2.1 SERUM PSA: 9.8 on 08/13/2021 8.9 on 02/08/2022. SURGICAL PATHOLOGY: No data available. FINDINGS: Prostatic dimensions: 4.6 x 3.7 x 3.6 cm. Prostatic volume (3D): 32.08 mL.(Ellipsoid Volume) PSA density: 0.28 ng/mL/mL. CENTRAL GLAND (Central and Transition Zones/CZ+TZ): There is low T2 signal involving the transitional zone apex anteriorly with ill-defined borders exten ding along the capsule anteriorly 23 mm and measures 23 x 12 x 8 mm. This area does demonstrate some high DWI signal on limited diffusion-weighted imaging due to right hip prosthesis. There is some adela y postcontrast enhancement in this area. PI-RADS 5 This PERIPHERAL ZONE (PZ): Limited evaluation secondary to limited DWI sequences from right hip arthroplasty from field inhomoge neity artifact. Bilateral linear, indistinct wedgelike areas of low ADC, and low T2 signal, No evidence of masslike a bnormality, or localized perfusional hypervascularity, to further suggest a focus of clinically signi ficant prostate cancer. (PI-RADS 2) SEMINAL VESICLES (SV): Symmetric and unremarkable. PERIPROSTATIC TISSUES: Unremarkable. LYMPH NODES: No enlarged pelvic lymph node. REMAINING PELVIS: Bladder wall is within normal limits given distention. No abnormal free or organized intrapelvic fluid collection. No pathologic bowel dilation or mural thickening. OSSEOUS STRUCTURES: No suspicious osseous abnormality. Right hip arthroplasty partially visualized. L1 vertebral body hig h T2 signal measuring 1.5 cm. IMPRESSION: 1. PIRADS 5 - 2.3 cm lesion in the transitional zone apex anteriorly. 2. No suspicious osseous lesion. No lymphadenopathy.
== END | disposition home or self-care (01) ==
LOC: RADMRIMAIN 08:36
PROVIDERS: ATTEND Urology
DX: R97.20 Elevated prostate specific antigen [PSA] (principal)
CPT/HCPCS: 72197; A9585

== ENCOUNTER → 2022-06-25 | Outpatient (CLI) | payer MEDICARE ==
--- NOTE | 2022-07-01 16:40 | US ---
EXAMINATION TYPE: US arterial LE single level DATE OF EXAM: 06/25/2022 2:54 PM CLINICAL HISTORY: I73.9 PAD. Doppler Waveforms: Right: Multiphasic Left: Multiphasic Pressure Gradients: No significant downward gradient, pressures elevated peripherally in the lower ex tremities Ankle-Brachial Indices: Right: 1.33 Left: 1.44 Toe Brachial Indices: Right: 0.83 Left: 0.64 IMPRESSION: Normal ankle-brachial indices
== END | disposition home or self-care (01) ==
LOC: RADUSWWP 14:18
PROVIDERS: ATTEND Internal Medicine
DX: I73.9 Peripheral vascular disease, unspecified (principal)
CPT/HCPCS: 93922

== ENCOUNTER → 2023-01-09 | Outpatient (CLI) | payer MEDICARE ==
--- NOTE | 2023-01-09 12:22 | CT ---
EXAMINATION TYPE: CT abdomen pelvis w con DATE OF EXAM: 01/09/2023 COMPARISON: None HISTORY: prostate ca CT DLP: 1705.7 mGycm CONTRAST: CT scan of the abdomen and pelvis is performed with Oral Contrast and with IV Contrast, patient injec paris with 100 mL of Isovue 300. FINDINGS: LUNG BASES-: No visible nodule. No infiltrate. LIVER/GB: Small layering gallstones. No space occupying hepatic lesion. Biliary tree is of normal caliber. PANCREAS: No inflammation. No distinct mass. SPLEEN: No splenic enlargement. No lesion seen. ADRENALS: No nodule. No thickening. KIDNEYS/BLADDER: No hydronephrosis. No nephrolithiasis. No distinct renal mass. Urinary bladder g rossly unremarkable. BOWEL: Normal appendix. Normal bowel caliber. No inflammation. GENITAL ORGANS: No gross abnormality. LYMPH NODES: No greater than 1cm abdominal or pelvic lymph nodes are appreciated. AORTA: No significant abnormality. OSSEOUS STRUCTURES: Right hip prosthesis and moderate degenerative change throughout the lumbar spine . OTHER: No significant additional abnormality is seen. IMPRESSION: 1. No significant abnormality. No evidence for metastatic disease to the osseous structures.
--- NOTE | 2023-01-09 14:26 | NM ---
EXAMINATION TYPE: NM bone scan whole body DATE OF EXAM: 01/09/2023 COMPARISON: CT scan 01/09/2023, x-ray 04/11/2020 CLINICAL INDICATION: Male, 78 years old with history of C61 MALIGNANT NEOPLASM OF PROSTATE; Delayed whole-body scanning was performed following the injection of 23.2 mCi Tc 99m MDP. Images acq uired 3 hours post injection. FINDINGS: There is intense abnormal uptake involving the sternoclavicular joints greater on the right. Small focal area of examination seen overlying the anterior left rib cage adjacent to the left. There is mild increased uptake in both shoulders and feet compatible with arthritic change. Photopeni c defect right hip and left knee compatible with prior surgery and there is moderate uptake involving the right knee most typical arthritis. Mild intensity uptake throughout the thoracic spine and upper lumbar spine and lumbosacral junction a ppears degenerative. IMPRESSION: 1. Suspect the uptake within the visualized scans most likely post degenerative and arthritic. The on ly area of markedly increased uptake seen in the sternoclavicular joints and would favor post arthrit ic changes but recommend x-ray correlation.
== END | disposition home or self-care (01) ==
LOC: RADNMMAIN 09:43
PROVIDERS: ATTEND Radiology Radiation Oncology
DX: C61 Malignant neoplasm of prostate (principal)
CPT/HCPCS: 82565; 84520; 74177; 36415; 78306; A9503; Q9967

== ENCOUNTER → 2023-01-30 | Outpatient (CLI) | payer MEDICARE ==
[2023-01-30 14:49] LABS: Basophils # (A) 0.05 X 10*3/uL (0.00-0.10); Basophils % (A) 0.6 %; Eosinophils # (A) 0.07 X 10*3/uL (0.04-0.35); Eosinophils % (A) 0.9 %; HCT 40.5 % (39.6-50.0); HGB 13.1 g/dL (13.0-17.0); Immature Grans, Automated 0.3 %; Lymphocytes # (A) 1.54 X 10*3/uL (0.90-5.00); Lymphocytes % (A) 19.5 %; MCH 30.3 pg (27.0-32.0); MCHC 32.3 g/dL (32.0-37.0); MCV 93.8 fL (80.0-97.0); Mean Platelet Volume 11.3 fL (9.5-12.2); Monocytes # (A) 0.48 X 10*3/uL (0.20-1.00); Monocytes % (A) 6.1 %; NRBC Per 100 WBC 0 /100 WBCS (0.0-0.0); Neutrophils # (A) 5.74 X 10*3/uL (1.80-7.70); Neutrophils % (A) 72.6 %; Platelet Count 207 X 10*3/uL (140-440); RBC 4.32 X 10*6/uL (4.40-5.60); RDW 14.2 % (11.5-14.5)
[2023-01-30 15:00] LABS: African American GFR (CKD) 66.5 (60.0-200.0); Anion Gap 8.3 mmol/L (10.00-18.00); BUN/Creat Ratio 15.04 Ratio (12.00-20.00); Blood Urea Nitrogen 18.2 mg/dL (9.0-27.0); Calcium 9.2 mg/dL (8.7-10.3); Non-African American GFR(CKD) 57.4 (60.0-200.0); Potassium 3.4 mmol/L (3.5-5.5)
[2023-01-30 16:28] LABS: Appearance,Urine Clear (Clear); Bilirubin,Urine Negative (Negative); Blood,Urine Trace (Negative); Color,Urine Yellow (Yellow); Ketones,Urine Negative (Negative); Nitrite,Urine Negative (Negative)
[2023-01-30 16:42] LABS: Bacteria,Urine None Seen /HPF (None Seen)
== END | disposition home or self-care (01) ==
LOC: LABPAT 09:08
PROVIDERS: ATTEND Urology
DX: Z01.812 Encounter for preprocedural laboratory examination (principal); C61 Malignant neoplasm of prostate; R31.29 Other microscopic hematuria
CPT/HCPCS: 80048; 81001; 85025; 87086

== ENCOUNTER 2023-02-06 11:38 | Day surgery (SDC) | payer MEDICARE ==
[2023-02-04 12:00] VITALS: BMI 31.1
--- NOTE | 2023-02-05 22:11 | P.GSHP ---
History of Present Illness H&P Date: 02/05/23 Chief Complaint: Prostate cancer The patient is a 78-year-old white male with recently diagnosed prostate cancer. His most recent PSA level was 12.70. Prostate MRI showed a PI-RADS 5 lesion. He underwent MRI ultrasound fusion biopsy, and was found to have multifocal Raymon 6/7 adenocarcinoma. Treatment options were reviewed, and he is to be treated with androgen deprivation therapy and radiation therapy. He now comes for SpaceOAR implant to reduce the risk of rectal toxicity. Past Medical History Past Medical History: Atrial Fibrillation, Diabetes Mellitus, Hyperlipidemia, Hypertension, Osteoarthritis (OA), Prostate Disorder Additional Past Medical History / Comment(s): Gout, neuropathy in hands and feet. Current prostate cancer. History of Any Multi-Drug Resistant Organisms: None Reported Past Surgical History: Joint Replacement, Orthopedic Surgery Additional Past Surgical History / Comment(s): TOTAL RIGHT HIP 2008, RIGHT ROTATOR CUFF REPAIR, left knee surgery, left knee replacement, cyst removed from thigh, MRI Fusion Biopsy of prostate. Past Anesthesia/Blood Transfusion Reactions: No Reported Reaction Past Psychological History: No Psychological Hx Reported Smoking Status: Never smoker Past Alcohol Use History: Rare Past Drug Use History: None Reported - Past Family History Father Family Medical History: AFIB, Cancer, Coronary Artery Disease (CAD), Prostate Disorder Additional Family Medical History / Comment(s): Skin cancer. Medications and Allergies Home Medications Medication Instructions Recorded Confirmed Type Gabapentin [Neurontin] 300 mg PO BID 05/31/14 02/04/23 History allopurinoL [Zyloprim] 100 mg PO QAM 05/31/14 02/04/23 History glipiZIDE [Glucotrol XL] 5 mg PO QAM 05/31/14 02/04/23 History Ascorbic Acid [Vitamin C] 500 mg PO DAILY 02/20/21 02/04/23 History Atorvastatin [Lipitor] 20 mg PO HS 02/20/21 02/04/23 History Cholecalciferol (Vitamin D3) 125 mcg PO DAILY 02/20/21 02/04/23 History [Vitamin D3 (5000 Iu)] Furosemide [Lasix] 40 mg PO DAILY 02/20/21 02/04/23 History Metoprolol Tartrate [Lopressor] 50 mg PO BID 02/20/21 02/04/23 History Rivaroxaban [Xarelto] 20 mg PO DAILY 02/20/21 02/04/23 History Zinc 50 mg PO DAILY 02/20/21 02/04/23 History lisinopriL [Zestril] 5 mg PO BID 02/20/21 02/04/23 History Dapagliflozin Propanediol [Farxiga] 5 mg PO DAILY 07/27/21 02/04/23 History HYDROcodone/APAP 5-325MG [[place] 1 tab PO BID PRN 07/27/21 02/04/23 History 5-325] Semaglutide [Rybelsus] 7 mg PO DAILY 07/27/21 02/04/23 History Potassium Chloride [K-Tab ER] 10 meq PO DAILY 10/30/22 02/04/23 History Allergies Allergy/AdvReac Type Severity Reaction Status Date / Time codeine AdvReac Hallucinati Verified 02/04/23 11:49 ons Surgical - Exam - General well developed, well nourished, no distress - Respiratory normal respiratory effort - Abdomen Abdomen: soft, non tender, no guarding, no rigid, no rebound - Psychiatric oriented to time, oriented to person, oriented to place, speech is normal, memory intact Assessment and Plan (1) Malignant neoplasm of prostate Status: Acute Code(s): C61 - MALIGNANT NEOPLASM OF PROSTATE SNOMED Code(s): 073584276 Plan: The SpaceOar implant has been reviewed in detail with the patient. He understands that the rationale for this is to create separation between the prostate and rectum, thus reducing the risk of radiation proctitis. The material begins to breakdown 12-13 weeks following implant, and is reabsorbed by the body. Risks include anesthesia, bleeding, infection, and perineal discomfort. He understands that if the rectal wall is perforated the procedure will need to be aborted.
[~2023-02-06 11:38] MED LIST changes: +DEXAMETHASONE SOD PHOSPHATE 4 MG/ML 1 ML VIAL IV ONE; +HYDROmorphone 0.5 MG/0.5 ML SYRINGE IVP PRN; +LIDOCAINE 1% (10MG/ML) FOR IV START INTRADERMA PRN; +ONDANSETRON 4 MG/2 ML VIAL IVP ONE; +Pre Op ABX Message 1 EACH MISC MISCELLANE ONE; -SODIUM CHLORIDE 0.9% 1,000 ML IV SCH; -fentaNYL (PF) 50 MCG/ML 2 ML AMP IV PRN; +fentaNYL (PF) 50 MCG/ML 2 ML AMP IVP PRN
[2023-02-06 12:42] VITALS: RESP 16; TEMP 97.4
[2023-02-06 12:54] LABS: Glucose,Whole Blood 144 mg/dL (70-110)
[2023-02-06] MEDS ORDERED: LIDOCAINE 2% INJ 20 MG/ML SQ ONE ×2 (13:40→14:01)
[2023-02-06] MEDS ORDERED: MIDAZOLAM 2 MG/2 ML VIAL ONE (13:45)
[2023-02-06] MEDS ORDERED: PROPOFOL 10 MG/ML 20 ML VIAL IV ONE (13:45)
[2023-02-06] MEDS ORDERED: fentaNYL (PF) 50 MCG/ML 2 ML AMP ONE (13:45)
[2023-02-06] MEDS ORDERED: SODIUM CHLORIDE 0.9% 100 ML BAG ONE (13:50)
[2023-02-06] MEDS ORDERED: SODIUM CHLORIDE 0.9% 50 ML with ceFAZolin 1,000 MG IV ONE ×2 (13:50)
[2023-02-06] MEDS ORDERED: ceFAZolin 1,000 MG VIAL ONE (13:50)
--- NOTE | 2023-02-06 14:11 | P.OP ---
Date of Procedure: 02/06/23 Preoperative Diagnosis: Adenocarcinoma the prostate Postoperative Diagnosis: Same Procedure(s) Performed: SpaceOAR Implant Anesthesia: MAC Surgeon: Pradip Zamudio Estimated Blood Loss (ml): 5 IV fluids (ml): 300 Pathology: none sent Condition: stable Disposition: PACU Indications for Procedure: The patient is a 78-year-old white male with recently diagnosed prostate cancer. His most recent PSA level was 12.70. Prostate MRI showed a PI-RADS 5 lesion. He underwent MRI ultrasound fusion biopsy, and was found to have multifocal Raymon 6/7 adenocarcinoma. Treatment options were reviewed, and he is to be treated with androgen deprivation therapy and radiation therapy. He now comes for SpaceOAR implant to reduce the risk of rectal toxicity. Operative Findings: 12 mm separation created between prostate and rectum. Description of Procedure: The patient was taken to the operating room and placed in the dorsolithotomy position, with his legs supported in Joseph stirrups. The external genitalia was prepped and draped sterilely. The Bruel and Kjaer transrectal ultrasound probe was placed intrarectally. The prostate was imaged. The probe was then placed within the stabilizing stand. A spinal needle was advanced under ultrasonic guidance to the level of the urogenital diaphragm, and lidocaine was used to infiltrate the tissues as the needle was withdrawn. Next, the SpaceOAR needle was passed through the midline of the perineum, 1-2 cm anterior to the anal opening. The needle was slowly advanced under ultrasonic guidance until the needle tip was located within the fat plane between the prostate and rectum, at the level of the mid prostate gland. The needle was confirmed to be midline on the axial imaging. A small amount of normal saline was injected for hydrodissection. Next, the SpaceOAR components were mixed and loaded into the Y connector per protocol. The Y connector was then connected to the needle, and the components were injected slowly over a course of approximately 12 seconds. A total of 10 ml was injected. Significant distance was created between the prostate and rectum, as desired. It should be noted that at no point was there any concern of rectal perforation. The needle was withdrawn, as well as the transrectal ultrasound probe, and the procedure was terminated. The patient tolerated the procedure well and was taken to the recovery room in stable condition.
[2023-02-06 14:32] VITALS: BP 132/64
[2023-02-06 14:34] VITALS: PULSE 49
== END 2023-02-06 15:00 | disposition home or self-care (01) ==
LOC: OR 11:38
PROVIDERS: ATTEND Urology
DX: C61 Malignant neoplasm of prostate (principal); I48.91 Unspecified atrial fibrillation; E78.5 Hyperlipidemia, unspecified; M19.90 Unspecified osteoarthritis, unspecified site; I10 Essential (primary) hypertension; E11.40 Type 2 diabetes mellitus with diabetic neuropathy, unspecified; F10.90 Alcohol use, unspecified, uncomplicated; Z98.890 Other specified postprocedural states; Z90.79 Acquired absence of other genital organ(s); Z82.49 Family history of ischemic heart disease and other diseases of the circulatory system; Z80.8 Family history of malignant neoplasm of other organs or systems; Z79.84 Long term (current) use of oral hypoglycemic drugs; Z79.01 Long term (current) use of anticoagulants; Z88.5 Allergy status to narcotic agent; Z79.899 Other long term (current) drug therapy
CPT/HCPCS: 84132; 55874; C1889; J2001; J2250; J1100; J2405; J0690; J3010; J2704

== ENCOUNTER → 2023-02-12 | Outpatient (CLI) | payer MEDICARE ==
[2023-02-12 15:12] LABS: African American GFR (CKD) 67.2 (60.0-200.0); Anion Gap 9.7 mmol/L (10.00-18.00); BUN/Creat Ratio 17.25 Ratio (12.00-20.00); Blood Urea Nitrogen 20.7 mg/dL (9.0-27.0); Calcium 8.8 mg/dL (8.7-10.3); Carbon Dioxide 30.3 mmol/L (20.0-27.5); Potassium 3.9 mmol/L (3.5-5.5)
== END | disposition home or self-care (01) ==
LOC: LABWHC1 09:53
PROVIDERS: ATTEND Internal Medicine Interventional Cardiology
DX: I10 Essential (primary) hypertension (principal)
CPT/HCPCS: 36415; 80048

== ENCOUNTER → 2023-03-03 | Outpatient (CLI) | payer MEDICARE ==
[2023-03-04 18:46] LABS: ALT 21 U/L (10-49); AST 15 U/L (14-35); Blood Urea Nitrogen 23.4 mg/dL (9.0-27.0); Uric Acid 5.3 mg/dL (3.7-8.7)
== END | disposition home or self-care (01) ==
LOC: LABWHC1 10:30
PROVIDERS: ATTEND Podiatrist
DX: M10.9 Gout, unspecified (principal)
CPT/HCPCS: 36415; 82565; 84450; 84460; 84520; 84550